=== PATIENT | male | born 1975 | race Caucasian/White ===

== ENCOUNTER 2022-06-02 04:35 | Emergency (ER) | payer OTHER ==
[2022-06-02] MEDS ORDERED: IBUPROFEN600 MG PO (07:48)
[2022-06-02] MEDS ORDERED: HYDROCODON-ACE1 EAC4 PO (07:59)
== END 2022-06-02 08:23 | disposition home or self-care (01) ==
LOC: ER1 04:35
DX: S82.232A Displaced oblique fracture of shaft of left tibia, initial encounter for closed fracture (principal); R05.9 Cough, unspecified; J44.9 Chronic obstructive pulmonary disease, unspecified; V29.9XXA Motorcycle rider (driver) (passenger) injured in unspecified traffic accident, initial encounter; Y92.410 Unspecified street and highway as the place of occurrence of the external cause
CPT/HCPCS: 29505; 73610; 73630; 99283